=== PATIENT | female | born 1995 | race Caucasian/White ===

== ENCOUNTER 2023-04-16 15:05 | Emergency (ER) | payer OTHER ==
[~2023-04-16] VITALS: Ht 170.2 cm; Wt 90.7 kg
[2023-04-16] MEDS ORDERED: METHADONE HCL 10 MG TABLET PO SCH (15:30)
[2023-04-16] MEDS ORDERED: METHADONE HCL 10 MG TABLET ONE (16:49)
[2023-04-16 17:32] VITALS: BP 135/88
--- NOTE | 2023-04-16 17:33 | NUR ---
patient discharged back to [facility] accompanied by [employer] in no distress.
== END 2023-04-16 17:33 ==
LOC: ER 15:06
DX: O26.892 Other specified pregnancy related conditions, second trimester (principal); J45.909 Unspecified asthma, uncomplicated
CPT/HCPCS: 76856-TC